=== PATIENT | female | born 1970 | race Caucasian/White ===

== ENCOUNTER 2016-07-20 18:44 | Emergency (ER) | payer MEDICARE, MEDICAID ==
[~2016-07-20 18:44] MED LIST: DARVOCET-N 1001 TAB PO; ENABLEX7.5 MG; FLEXERIL10 MG; FLEXERIL10 MG PO; FLONASE16 GM; GLUCOPHAGE XR500 MG; GRALISE1 EAC1 PO; HYDROCODON-ACE1 EA15 PO; INDERAL LA60 MG; IRON1 TA1; NORCO 5/325 TAB1 TAB PO; RELPAX40 MG; RESTORIL30 MG; SINGULAIR10 MG; TRILEPTAL300 MG; ULTRAM50 MG; VESICARE5 M1 PO; VITAMIN C; XANAX0.5 MG; [UNRECOGNIZED DRUG - REMARK]
== END 2016-07-20 19:11 | disposition left against medical advice (07) ==
LOC: EDMED 18:44
DX: Z53.21 Procedure and treatment not carried out due to patient leaving prior to being seen by health care provider (principal)